=== PATIENT | female | born 1950 | race Caucasian/White ===

== ENCOUNTER 2019-04-12 09:56 | Emergency (ER) | payer OTHER, SELFPAY ==
[2019-04-12] MEDS ORDERED: FLUORESCEIN SODIUM 1 MG/WRAP ONE (10:13)
[2019-04-12] MEDS ORDERED: TETRACAINE HCL 0.5% 4ML OPTH ONE (10:13)
--- NOTE | 2019-04-12 10:28 | EDPHYS ---
Physician Documentation [facility] Name: Nara Fagan Age: 69 yrs Sex: Female : 1950 Arrival Date: 04/12/2019 Time: 10:02 Bed 13 Private MD: ED Physician Fabrizio Zayas HPI: 04/12 10:24 This 69 yrs old Female presents to ER via Ambulatory with complaints of Eye rn Injury. 10:24 Onset: The symptoms/episode began/occurred yesterday. Duration: the symptoms are rn continuous. Aggravated by nothing. Alleviated by nothing. Severity of symptoms: At their worst the symptoms were mild in the emergency department the symptoms are unchanged. The patient has not experienced similar symptoms in the past. Reports taking down cake box from elevated position, cardboard, hit her right eye, does not use contacts, + tearful and foreign body sensation, but no vision loss.. Historical: - Allergies: 10:11 Cipro; iw 10:11 Iodine; iw 10:11 Demerol; iw - Home Meds: 10:11 Singulair 10 mg Oral tab 1 tab once daily [Active]; inhaler [Active]; iw - PMHx: 10:11 Asthma; iw - PSHx: 10:11 None; iw - Immunization history:: Adult Immunizations up to date. - Social history:: Smoking status: Patient/guardian denies using tobacco. - Ebola Screening: : Patient negative for fever greater than or equal to 101.5 degrees Fahrenheit, and additional compatible Ebola Virus Disease symptoms Patient denies exposure to infectious person Patient denies travel to an Ebola-affected area in the 21 days before illness onset No symptoms or risks identified at this time. - Family history:: not pertinent. - Hospitalizations: : No recent hospitalization is reported. ROS: 10:24 Constitutional: Negative for fever, chills, and weight loss, Eyes: + right eye injury rn and pain Exam: 10:24 Visual Acuity: I have reviewed the nursing documentation. Visual acuity is within rn normal limits. 10:24 Constitutional: This is a well developed, well nourished patient who is awake, alert, and in no acute distress. Eyes: Pupils equal round and reactive to light, extra-ocular motions intact. Lids and lashes normal. No periorbital swelling or trauma. + central oblong fluorescein uptake right cornea, neg prince's sign. Vital Signs: 10:10 BP 131 / 88; Pulse 91; Resp 16; Pulse Ox 100% on R/A; Weight 62.6 kg; Height 5 ft. 6 iw in. (167.64 cm); Pain 9/10; 10:10 Body Mass Index 22.27 (62.60 kg, 167.64 cm) iw MDM: 10:09 Patient medically screened. rn 10:24 Differential diagnosis: Corneal abrasion of Foreign body in. Data reviewed: vital rn signs, nurses notes, and as a result, I will discharge patient. Counseling: I had a detailed discussion with the patient and/or guardian regarding: the historical points, exam findings, and any diagnostic results supporting the discharge/admit diagnosis, the need for outpatient follow up, to return to the emergency department if symptoms worsen or persist or if there are any questions or concerns that arise at home. Response to treatment: the patient's symptoms have resolved after treatment, Resolved after tetracaine. Special discussion: I discussed with the patient/guardian in detail that at this point there is no indication for admission to the hospital. It is understood, however, that if the symptoms persist or worsen the patient needs to return immediately for re-evaluation. Administered Medications: 10:20 Drug: Fluorescein Strip 1 strip Route: Ophthalmic; Site: left eye; bp 10:20 Drug: Tetracaine Drops 0.5 % 1 drops Route: Ophthalmic; Site: left eye; bp Disposition: 04/12/19 10:27 Discharged to Home. Impression: Injury of conjunctiva and corneal abrasion without foreign body, right eye. - Condition is Stable. - Discharge Instructions: Corneal Abrasion. - Prescriptions for Erythromycin 5 mg/gram (0.5 %) Ophthalmic Ointment - apply 1 centimeter by OPHTHALMIC route 2-3 times daily for 7 days; 1 tube. - Medication Reconciliation Form, Thank You Letter, Antibiotic Education, Prescription Opioid Use form. - Follow up: Private Physician; When: As needed; Reason: Recheck today's complaints, Re-evaluation by your physician. - Problem is new. - Symptoms have improved. Signatures: Danita Lagunas RN RN Fabrizio Zayas MD MD rn Peltier, Brian, RN RN bp Corrections: (The following items were deleted from the chart) 11:10 10:27 04/12/2019 10:27 Discharged to Home. Impression: Injury of conjunctiva and bp corneal abrasion without foreign body, right eye. Condition is Stable. Forms are Medication Reconciliation Form, Thank You Letter, Antibiotic Education, Prescription Opioid Use. Follow up: Private Physician; When: As needed; Reason: Recheck today's complaints, Re-evaluation by your physician. Problem is new. Symptoms have improved. rn
--- NOTE | 2019-04-12 10:28 | ER ---
Nurse's Notes [facility] Name: Nara Fagan Age: 69 yrs Sex: Female : 1950 Arrival Date: 04/12/2019 Time: 10:02 Bed 13 Private MD: Diagnosis: Injury of conjunctiva and corneal abrasion without foreign body, right eye Presentation: 04/12 10:08 Presenting complaint: Patient states: was getting a cake box out of freezer last night, iw corner of box hit her right eye, feels irritated and watery, mild blurry vision. Transition of care: patient was not received from another setting of care. 10:08 Method Of Arrival: Ambulatory iw 10:08 Acuity: KULWANT 4 iw 10:11 Onset of symptoms is unknown. Risk Assessment: Do you want to hurt yourself or someone bp else? Patient reports no desire to harm self or others. Initial Sepsis Screen: Does the patient meet any 2 criteria? No. Patient's initial sepsis screen is negative. Does the patient have a suspected source of infection? No. Patient's initial sepsis screen is negative. Care prior to arrival: None. Triage Assessment: 10:11 General: Appears in no apparent distress. comfortable, Behavior is calm, cooperative, bp appropriate for age. Pain: Complains of pain in right eye. EENT: Reports pain in right eye. Neuro: No deficits noted. Cardiovascular: No deficits noted. Respiratory: No deficits noted. GI: No signs and/or symptoms were reported involving the gastrointestinal system. : No signs and/or symptoms were reported regarding the genitourinary system. Derm: No deficits noted. Musculoskeletal: No deficits noted. Historical: - Allergies: 10:11 Cipro; iw 10:11 Iodine; iw 10:11 Demerol; iw - Home Meds: 10:11 Singulair 10 mg Oral tab 1 tab once daily [Active]; inhaler [Active]; iw - PMHx: 10:11 Asthma; iw - PSHx: 10:11 None; iw - Immunization history:: Adult Immunizations up to date. - Social history:: Smoking status: Patient/guardian denies using tobacco. - Ebola Screening: : Patient negative for fever greater than or equal to 101.5 degrees Fahrenheit, and additional compatible Ebola Virus Disease symptoms Patient denies exposure to infectious person Patient denies travel to an Ebola-affected area in the 21 days before illness onset No symptoms or risks identified at this time. - Family history:: not pertinent. - Hospitalizations: : No recent hospitalization is reported. Screenin:09 Abuse screen: Denies threats or abuse. Denies injuries from another. Nutritional bp screening: No deficits noted. Tuberculosis screening: No symptoms or risk factors identified. Fall Risk None identified. Assessment: 11:08 General: PT D/C HOME AMBULATORY WITH FAMILY, DX WITH CORNEAL ABRASION. bp Vital Signs: 10:10 BP 131 / 88; Pulse 91; Resp 16; Pulse Ox 100% on R/A; Weight 62.6 kg; Height 5 ft. 6 iw in. (167.64 cm); Pain 9/10; 10:10 Body Mass Index 22.27 (62.60 kg, 167.64 cm) iw ED Course: 10:02 Patient arrived in ED. mr 10:03 Mitchel Burch, RN is Primary Nurse. bp 10:08 Fabrizio Zayas MD is Attending Physician. rn 10:10 Triage completed. iw 10:11 Arm band placed on. iw 11:09 Patient has correct armband on for positive identification. Bed in low position. Call bp light in reach. Side rails up X2. 11:09 No provider procedures requiring assistance completed. Patient did not have IV access bp during this emergency room visit. Administered Medications: 10:20 Drug: Fluorescein Strip 1 strip Route: Ophthalmic; Site: left eye; bp 10:20 Drug: Tetracaine Drops 0.5 % 1 drops Route: Ophthalmic; Site: left eye; bp Outcome: 10:27 Discharge ordered by . rn 11: Discharged to home ambulatory, with family. bp 11:09 Condition: stable 11:09 Discharge instructions given to patient, Instructed on discharge instructions, follow up and referral plans. medication usage, Demonstrated understanding of instructions, follow-up care, medications, Prescriptions given X 1. 11:10 Patient left the ED. bp Signatures: Margot Nichols Irene, RN JABIER iw Fabrizio Zayas MD MD rn Peltier, Brian, RN RN bp
== END 2019-04-12 11:10 | disposition home or self-care (01) ==
LOC: ER 09:56
DX: S05.01XA Injury of conjunctiva and corneal abrasion without foreign body, right eye, initial encounter (principal); W22.8XXA Striking against or struck by other objects, initial encounter; Y93.89 Activity, other specified; Y92.9 Unspecified place or not applicable; J45.909 Unspecified asthma, uncomplicated; Z88.1 Allergy status to other antibiotic agents; Z88.5 Allergy status to narcotic agent; Z91.048 Other nonmedicinal substance allergy status
CPT/HCPCS: 99283